=== PATIENT | male | born 1950 | race Caucasian/White ===

== ENCOUNTER → 2016-12-31 | Outpatient (CLI) | payer OTHER | LOC: SLEEPLAB 08:21 | DX: G47.33 Obstructive sleep apnea (adult) (pediatric) (principal) ==

== ENCOUNTER → 2017-10-26 | Outpatient (CLI) | payer OTHER | LOC: NUC 06:26 | DX: I25.10 Atherosclerotic heart disease of native coronary artery without angina pectoris (principal); I99.8 Other disorder of circulatory system; E78.5 Hyperlipidemia, unspecified; E11.9 Type 2 diabetes mellitus without complications; Z95.1 Presence of aortocoronary bypass graft; Z87.891 Personal history of nicotine dependence ==

== ENCOUNTER → 2018-07-25 | Outpatient (CLI) | payer OTHER | LOC: PET 13:16 | DX: N20.1 Calculus of ureter (principal); J98.4 Other disorders of lung; J98.11 Atelectasis; J90 Pleural effusion, not elsewhere classified; R91.8 Other nonspecific abnormal finding of lung field; Z89.512 Acquired absence of left leg below knee; Z95.820 Peripheral vascular angioplasty status with implants and grafts; M25.78 Osteophyte, vertebrae ==